=== PATIENT | male | born 1935 | race Hispanic/Latino ===

== ENCOUNTER → 2016-03-04 | Outpatient (REF) | payer MEDICARE ==
[2016-03-04 13:54] LABS: CREATININE FOR GFR 1.7 MG/DL (0.70-1.30); GLOMERULAR FILTRATION RATE 41.4 (>35); POTASSIUM SERUM 4.9 MEQ/L (3.5-5.1)
== END ==
LOC: M SFHCPLAZ 09:27
PROVIDERS: ATTEND Family Medicine
DX: Z86.79 Personal history of other diseases of the circulatory system (principal)

== ENCOUNTER → 2016-03-04 | Outpatient (CLI) | payer MEDICARE ==
[~2016-03-04] MED LIST: ISOVUE-370 76% 100ML VIAL (Q9967) As Ordered ONE
--- NOTE | 2016-03-05 08:44 | REP ---
CAROTID ULTRASOUND: Real-time ultrasound evaluation and duplex Doppler interrogation of the extracranial carotid vasculature is performed. There is mild plaquing and narrowing in both carotid bulbs extending into the internal and external carotid arteries. Luminal narrowing is less than 50%. There is no evidence of hemodynamically significant stenosis of either internal carotid artery. Normal flow velocities are seen. The vertebral arteries demonstrate normal direction of flow. RIGHT LEFT Peak systolic velocity ICA 57.5 cm/s 50.6 cm/s End diastolic velocity ICA 14.1 cm/s 10.3 cm/s Peak systolic velocity CCA 49.6 cm/s 66.4 cm/s Peak systolic velocity ECA 52.4 cm/s 79.5 cm/s ICA/CCA ratio 1.16 0.97 IMPRESSION: Bilateral luminal narrowing of the internal carotid arteries less than 50%. No evidence of hemodynamically significant stenosis. Signed by Bruno Figueroa MD 03/04/2016 01:56 P
== END ==
LOC: M RAD 12:39
PROVIDERS: ATTEND Family Medicine
DX: R42 Dizziness and giddiness (principal); J45.30 Mild persistent asthma, uncomplicated; R41.89 Other symptoms and signs involving cognitive functions and awareness; I95.9 Hypotension, unspecified; R25.8 Other abnormal involuntary movements; H53.451 Other localized visual field defect, right eye; Z79.899 Other long term (current) drug therapy; Z86.79 Personal history of other diseases of the circulatory system

== ENCOUNTER → 2016-03-05 | Outpatient (REF) | payer MEDICARE ==
[2016-03-05 19:06] LABS: CALCIUM LEVEL 8.7 MG/DL (8.8-10.2); CREATININE FOR GFR 1.74 MG/DL (0.70-1.30); GLOMERULAR FILTRATION RATE 40.3 (>35); POTASSIUM SERUM 4.3 MEQ/L (3.5-5.1)
== END ==
LOC: M SFHCPLAZ 15:56
PROVIDERS: ATTEND Family Medicine
DX: N18.3 Chronic kidney disease, stage 3 (moderate) (principal)
CPT/HCPCS: 36415; 80048; 82043; G0463

== ENCOUNTER → 2016-03-08 | Outpatient (CLI) | payer MEDICARE ==
--- NOTE | 2016-03-08 14:17 | REP ---
MRA CAROTIDS WITHOUT CONTRAST: HISTORY: Neurologic deficit. Unenhanced 2D [id number] MR angiography was performed at the level of the carotid bifurcations. The distal common carotid arteries and origins of the external and internal carotid arteries are normal. The vertebral arteries are equal in size and patent. There are no atherosclerotic lesions. IMPRESSION: Normal MRA carotids. Signed by Joel Sousa MD 03/08/2016 02:24 P
--- NOTE | 2016-03-08 14:30 | REP ---
MRA BRAIN WITHOUT CONTRAST: HISTORY: Neurologic deficit. 3D [id number] MR angiography was performed at the level of the [place]. There is no aneurysm or arteriovenous malformation. Mild atherosclerotic disease involves the cavernous and supraclinoid internal carotid arteries. Major intracranial vessels are patent. The vertebral arteries are equal in size. IMPRESSION: 1. There is no aneurysm or arteriovenous malformation. 2. Atherosclerotic disease as described above. Signed by Joel Sousa MD 03/08/2016 02:35 P
== END ==
LOC: M RAD 12:39
PROVIDERS: ATTEND Family Medicine
DX: R29.818 Other symptoms and signs involving the nervous system (principal)